=== PATIENT | male | born 1940 | race Hispanic/Latino ===

== ENCOUNTER 2019-02-28 11:08 | Outpatient (CLI) | payer MEDICARE, OTHER ==
--- NOTE | 2019-02-28 12:16 | RAD ---
LUMBAR SPINE TWO VIEWS: HISTORY: Low back pain. Radiculopathy. FINDINGS: There is mild compression deformity of the L5 vertebra. This is age indeterminate. Posterior alignm ent is preserved. There is loss of disk space at L4-L5 and mild disk narrowing at L5-S1. Disk space s above L5 are preserved. Mild to moderate degenerative spurring is seen in the lower thoracic and u pper lumbar vertebrae. Facet hypertrophy is noted. IMPRESSION: Mild compression deformity of the L5 vertebra, which is age indeterminate. Posterior alignment is pr eserved. There are degenerative changes, as described. POS: [facility]
== END 2019-02-28 11:09 | disposition home or self-care (01) ==
LOC: BICRAD 11:08
PROVIDERS: ATTEND Specialist
DX: M47.26 Other spondylosis with radiculopathy, lumbar region (principal)
CPT/HCPCS: 72100

== ENCOUNTER 2019-03-03 13:47 | Outpatient (CLI) | payer MEDICARE, OTHER ==
--- NOTE | 2019-03-03 14:36 | BD ---
DEXA BONE DENSITY STUDY: Date: 03/03/19 HISTORY: 78-year-old male with osteopenia. FINDINGS: Lumbar Spine: BMD (g/cm2) L1 1.149 T-Score: 0.7 L2 1.130 T-Score: 0.3 L3 1.092 T-Score: -0.1 L4 1.947 T-Score: -0.4 L1-L4 1.099 T-Score: 0.1 Left Femoral Neck: 0.738 T-Score: -1.4 Total Femur: 1.054 T-Score: 0.1 IMPRESSION: Osteopenia. This patient has a 10 year WHO fracture risk of a major osteoporotic fracture of 6.1% and of a hip fracture of 2.2%. POS: [facility]
== END 2019-03-03 13:48 | disposition home or self-care (01) ==
LOC: BICMAMMO 13:47
PROVIDERS: ATTEND Specialist
DX: M48.56XA Collapsed vertebra, not elsewhere classified, lumbar region, initial encounter for fracture (principal); M85.852 Other specified disorders of bone density and structure, left thigh
CPT/HCPCS: 77080

== ENCOUNTER 2021-03-19 10:20 | Outpatient (CLI) | payer MEDICARE, OTHER | END 2021-03-19 10:21 | disposition home or self-care (01) | LOC: BICRAD 10:20 | PROVIDERS: ATTEND Specialist | DX: M19.042 Primary osteoarthritis, left hand (principal); M79.89 Other specified soft tissue disorders ==

== ENCOUNTER 2021-05-28 10:37 | Outpatient (CLI) | payer MEDICARE, OTHER | END 2021-05-28 10:38 | disposition home or self-care (01) | LOC: BICRAD 10:37 | PROVIDERS: ATTEND Specialist | DX: M25.531 Pain in right wrist (principal); M19.031 Primary osteoarthritis, right wrist ==

== ENCOUNTER → 2023-04-26 | Day surgery (SDC) | payer OTHER, MEDICAID ==
[2023-04-23 12:15] VITALS: BMI 26.8
[~2023-04-26] MED LIST: Magnevist 469MG/ML 20 ML VIAL ONE
== END ==
LOC: MRI 09:48
PROVIDERS: ATTEND Specialist
DX: R29.6 Repeated falls (principal)
CPT/HCPCS: 70553; A9579

== ENCOUNTER 2023-07-09 12:18 | Outpatient (CLI) | payer OTHER, MEDICAID | END 2023-07-09 12:19 | disposition home or self-care (01) | LOC: RAD 12:18 | PROVIDERS: ATTEND Specialist | DX: M25.571 Pain in right ankle and joints of right foot (principal) ==

== ENCOUNTER 2025-06-25 22:22 | Inpatient (IN) | payer MEDICAID, OTHER ==
[2025-06-25] MEDS ORDERED: LORazepam 2 MG/ML SYR.(CARPUJECT) ONE ×2 (22:25→22:31)
[2025-06-25] MEDS ORDERED: levETIRAcetam 500 MG (5 mL) VIAL ONE (22:27)
[2025-06-25] MEDS ORDERED: Etomidate 40 MG (20 mL) VIAL ONE (22:32)
[2025-06-25] MEDS ORDERED: Rocuronium Bromide 10 MG/ML (10ML VIAL) ONE (22:32)
[2025-06-25 22:37] LABS: #Basophils 0.04 10x3/uL (0.0-0.2); #Eosinophils 0.14 10x3/uL (0.0-0.7); #Monocytes 1.08 10x3/uL (0.11-0.59); #Neutrophils 10.33 10x3/uL (1.40-6.50); %Basophils 0.3 % (0.0-1.0); %Eosinophils 1.0 % (0.0-10.0); %Lymphocytes 16.2 % (21.0-51.0); %Monocytes 7.8 % (0.0-10.0); %Neutrophils 74.3 % (42.0-75.0); Hematocrit 34.3 % (42.0-52.0); Hemoglobin 11.7 g/dL (14.0-18.0); Mean Corpuscular Hemoglobin 29.5 pg (27.0-31.0); Mean Corpuscular Volume 86.4 fL (78.0-98.0); Platelet Count 422 10x3/uL (130-400); Red Blood Cell (RBC) Count 3.97 mill/uL (4.70-6.10); White Blood Cell (WBC) Count 13.90 10x3/uL (4.8-10.8)
[2025-06-25 22:47] LABS: Actual Bicarbonate (HCO3a) 20.0 mEq/L (22-28); Analyzer IN Cardio ER; Base Excess (BEa) -2.3 mEq/L (-2.0 to +3.0); CO2 Tension 26.5 mmHg (35.0-45.0); Calcium, Ionized (arterial) 1.05 mmol/L (1.12-1.30); Hematocrit-ABG 31 % (42.0-52.0); Hemoglobin (Hb) 10.6 g/dL (14.0-18.0); O2 Tension (PaO2), arterial 547.9 mmHg (> 60.0); Potassium - ABG Lab 3.48 mmol/L (3.70-5.30); pH, Arterial 7.495 (7.35-7.45)
[2025-06-25 22:51] LABS: Puncture Site Right Radial artery
[2025-06-25 22:52] LABS: ALV-art Gradient 131.975 mmHg (0-20)
[2025-06-25 22:59] LABS: Acetaminophen Less than 10 mcg/mL (Less than 10); Salicylate Less than 8.0 mg/dL (Less than 8.0)
[2025-06-25 23:00] LABS: ALT (SGPT) 7 U/L (Less than 45); AST (SGOT) 38 U/L (11-34); Albumin 3.3 g/dL (3.1-4.5); Alkaline Phosphatase 120 U/L (40-110); Anion Gap 17 mmol/L (10-20); BUN (Urea Nitrogen) 22 mg/dL (8.4-25.7); Bilirubin, Total 1.0 mg/dL (0.3-1.2); Calc. Creatinine Clearance 0 mL/min (70-130); Calcium 8.4 mg/dL (7.8-10.44); Carbon Dioxide 24 mmol/L (23-31); Chloride 101 mmol/L (98-107); Globulin 3.1 g/dL (2.4-3.5); Glucose 142 mg/dL (83-110); Potassium 4.8 mmol/L (3.5-5.1); Sodium 137 mmol/L (136-145)
[2025-06-25 23:10] LABS: Bacteria/HPF None Seen HPF (None Seen); CAUTI Indications for Culture Alt mental st,lethar; Glucose, Urine (Dipstick) Normal (Negative); Leukocyte Negative Leu/uL (Negative); Protein, Urine (Dipstick) Negative (Neg-Trace); RBC/HPF 0-3 HPF (0-3); Specific Gravity, Urine 1.024 (1.002-1.036); WBC/HPF 0-3 HPF (0-3)
[2025-06-25 23:18] LABS: Urine Culture Reflex No No
[2025-06-25 23:22] LABS: Cocaine Metabolite Screen Negative (Negative); THC/Cannabinoid Screen Negative (Negative); Tricyclic Screen Negative (Negative)
[2025-06-25] MEDS ORDERED: niCARdipine 25 MG/10 ML SDV ONE (23:32)
[2025-06-26 00:15] LABS: INR-International Normal Ratio 1.4; PTT 35.6 sec (22.9-36.1); Prothrombin Time 17.0 sec (12.0-14.7)
[2025-06-26] MEDS ORDERED: Glucagon 1 MG/ML KIT IM PRN (00:24)
[2025-06-26] MEDS ORDERED: Dextrose 50% Abboject 50 ML SYRINGE SLOW IVP PRN (00:24)
[2025-06-26] MEDS ORDERED: Acetaminophen 325 MG TAB PO PRN (00:40)
[2025-06-26] MEDS ORDERED: Ondansetron PF 4 MG/2 ML Vial IVP PRN (00:40)
[2025-06-26 02:35] VITALS: BMI 20.4
[2025-06-26] MEDS ORDERED: Propofol BOLUS 1,000 MG/100 ML VIAL IV PRN (03:00)
[2025-06-26] MEDS ORDERED: DISCONTINUE PREVIOUS NARCOTIC PAIN MEDICATIONS AND BENZODIAZEPINES FS SCH (03:00)
[2025-06-26] MEDS ORDERED: Fentanyl BOLUS 100 ML IVPB PRN (03:00)
[2025-06-26 04:32] LABS: #Basophils 0.03 10x3/uL (0.0-0.2); #Eosinophils Less than 0.03 10x3/uL (0.0-0.7); #Monocytes 0.81 10x3/uL (0.11-0.59); #Neutrophils 7.12 10x3/uL (1.40-6.50); %Basophils 0.3 % (0.0-1.0); %Eosinophils 0.1 % (0.0-10.0); %Lymphocytes 10.3 % (21.0-51.0); %Monocytes 9.1 % (0.0-10.0); %Neutrophils 79.9 % (42.0-75.0); Hematocrit 30.7 % (42.0-52.0); Hemoglobin 10.3 g/dL (14.0-18.0); Mean Corpuscular Hemoglobin 29.1 pg (27.0-31.0); Mean Corpuscular Volume 86.7 fL (78.0-98.0); Platelet Count 374 10x3/uL (130-400); Red Blood Cell (RBC) Count 3.54 mill/uL (4.70-6.10); White Blood Cell (WBC) Count 8.92 10x3/uL (4.8-10.8)
[2025-06-26] MEDS: Ventilator Sedation Protocol 1 EACH FS ONE (04:33)
[2025-06-26 04:54] LABS: Anion Gap 14 mmol/L (10-20); BUN (Urea Nitrogen) 16 mg/dL (8.4-25.7); Calc. Creatinine Clearance 60 mL/min (70-130); Calcium 7.9 mg/dL (7.8-10.44); Carbon Dioxide 21 mmol/L (23-31); Chloride 104 mmol/L (98-107); Glucose 129 mg/dL (83-110); Potassium 3.7 mmol/L (3.5-5.1); Sodium 135 mmol/L (136-145)
[2025-06-26] MEDS: levETIRAcetam 500 MG (5 mL) VIAL SLOW IVP SCH (09:47)
[2025-06-26] MEDS: Famotidine/PF 20 mg/2ml Vial SLOW IVP SCH (09:47)
[2025-06-26 13:19] VITALS: BMI 20.4
[2025-06-26] MEDS: Glycopyrrolate 0.4 MG/ 2 ML VIAL SLOW IVP PRN (19:54)
[2025-06-26] MEDS: DC Sedation Protocol FS ONE (19:57)
[2025-06-27] MEDS: Glycopyrrolate 0.4 MG/ 2 ML VIAL SLOW IVP PRN (13:50)
[2025-06-30 07:33] VITALS: BP 122/75; TEMP 97.9
== END 2025-06-30 11:47 | disposition hospice, inpatient (51) | DRG 82 ==
LOC: ERS 22:22 → ERHOLD 06-26 00:37 → CCU 06-26 01:58 → SURG B 06-27 17:39
PROVIDERS: ADMIT Surgery; ATTEND Surgery
PROC: XX20X89 Monitoring of Brain Electrical Activity, Computer-aided Detection and Notification, New Technology Group 9 (ICD-10-PCS; principal; 2025-06-26)
PROC: 4A133R1 Monitoring of Arterial Saturation, Peripheral, Percutaneous Approach (ICD-10-PCS; 2025-06-26)
PROC: 0DH63UZ Insertion of Feeding Device into Stomach, Percutaneous Approach (ICD-10-PCS; 2025-06-26)
PROC: 5A1935Z Respiratory Ventilation, Less than 24 Consecutive Hours (ICD-10-PCS; 2025-06-26)
DX: S06.5XAA Traumatic subdural hemorrhage with loss of consciousness status unknown, initial encounter (principal); J96.00 Acute respiratory failure, unspecified whether with hypoxia or hypercapnia; E03.9 Hypothyroidism, unspecified; Z51.5 Encounter for palliative care; Z66 Do not resuscitate; I10 Essential (primary) hypertension; E78.5 Hyperlipidemia, unspecified; R40.2432 Glasgow coma scale score 3-8, at arrival to emergency department; Z79.84 Long term (current) use of oral hypoglycemic drugs; Z79.899 Other long term (current) drug therapy; W06.XXXA Fall from bed, initial encounter
CPT/HCPCS: 31500; 36415; 36416; 36600; 51702; 70450; 71045; 72125; 80048; 80053; 80306; 80307; 81001; 82805; 83605; 83880; 84146; 84484; 85025; 85610; 85730; 93005; 94002; 94003; 94760; 95812; 96365; 96366; 96367; 96368; 99292; G0390; J1308; J1953; J2060; J2270; J2704; J7030; J7799